=== PATIENT | female | born 2000 | race Caucasian/White ===

== ENCOUNTER 2019-01-25 19:18 | Observation (INO) ==
--- NOTE | 2019-01-25 20:41 | PROVIDER DOCUMENTATION ---
HPI-Abdominal Pain/GI Problem - General Chief Complaint: Abdominal Pain Stated Complaint: PAIN IN (R) ABD, VOMITING Time Seen by Provider: 01/25/19 20:18 Source: patient Allergies/Adverse Reactions: Patient Allergies Allergy/AdvReac Type Severity Reaction Status Date / Time No Known Allergies Allergy Verified 01/25/19 16:26 Home Medications: Home Medication List Medication Instructions Recorded Confirmed Last Taken Type NK [No Home Medications] 01/25/19 01/25/19 Unknown History - History of Present Illness-ABD Nature of Presenting Problems: Patient is a 18 yowf who complains of RLQ pain, n/v, and fever that began today. Also states she has been on her period since 01/16/19. She is currently on abx for a UTI. Denies any other complaints. She is non-toxic in appearance. Review of Systems - Adult - REVIEW OF SYSTEMS - ADULT Constitutional: reports: see HPI, fever Eyes: reports: no symptoms reported Ears, Nose, Mouth & Throat: reports: no symptoms reported Cardiovascular: reports: no symptoms reported Respiratory: reports: no symptoms reported Gastrointestinal: reports: see HPI Genitourinary: reports: see HPI, other (vaginal bleeding) Musculoskeletal: reports: no symptoms reported Integumentary: reports: no symptoms reported Neurological: reports: no symptoms reported Psychiatric: reports: no symptoms reported Endocrine: reports: no symptoms reported Hematologic/Lymphatic: reports: no symptoms reported Allergic/Immunologic: reports: no symptoms reported All Other Systems: Reviewed and Negative Past History - Adult - PAST MEDICAL HISTORY-ADULT Review of Records: reports: Old Records Reviewed, Nursing Assessment Review, Medications Reviewed, Social history reviewed & non-contributory. Major Childhood Illnesses: reports: denies history Cardiovascular: reports: denies history Respiratory: reports: denies history Gastrointestinal: reports: denies history Obstetrical/Gynecological: reports: denies history Genitourinary: reports: denies history Musculoskeletal: reports: denies history Neurological: reports: denies history Endocrine/Immune: reports: denies history Other Conditions: reports: denies history - PRIOR SURGERIES/PROCEDURES Surgical/Procedure History: reports: reviewed, not pertinent - PRIOR HOSPITALIZATIONS Prior Hospitalizations: reports: none - IMMUNIZATION STATUS Childhood Immunizations: See Nurse Assessment Flu Vaccine: See Nurse Assessment - FAMILY HISTORY Family History: reviewed, not pertinent - SOCIAL HISTORY Smoking: cigarettes, less than 1 pack/day Physical Exam-General - PHYSICAL EXAM-ADULT Initial Vital Signs Reviewed: Yes - CONSTITUTIONAL General Appearance: alert, mild distress. negative: lethargic, slow to respond - EYES Eyes: PERRL/EOMI, pink conjunctivae - HEAD, EARS, NOSE, MOUTH & THROAT HENMT: normocephalic/atraumatic, moist mucous membranes - NECK Neck: full range of motion, supple, normal inspection - RESPIRATORY Respiratory: chest non-tender, lungs clear, normal breath sounds, no pleuratic chest pain, no respiratory distress, no accessory muscle use - CARDIOVASCULAR Cardiovascular: regular rate, rhythm, no gallop, no murmur - GASTROINTESTINAL (ABDOMEN) Abdominal Exam: normal bowel sounds, soft, no organomegaly, no pulsatile mass, g uarding (RLQ), McBurney's point tenderness. negative: distended, rigid - MUSCULOSKELETAL Back Exam: normal inspection, no CVA tenderness Extremity: normal range of motion, non-tender, normal inspection - SKIN Integumentary: normal color, warm/dry. negative: cyanosis, diaphoresis, ja undice, mottled, pallor - NEUROLOGIC Neurologic: grossly normal, no motor/sensory deficits - PSYCHIATRIC Psych/Mental Status: normal mood/affect, normal thought content, normal thought process, oriented x 3 Progress - PLAN OF CARE/RESULTS Progress/Plan/Lab Results: Vital Signs - 8 hr 01/25/19 19:20 Temperature 101.0 F H Pulse Rate 105 H Respiratory Rate 19 Blood Pressure 134/94 O2 Sat by Pulse Oximetry 100 Result Diagrams: 01/26/19 00:00 01/26/19 00:00 - REASSESSMENT Reassessment #1 Time Reassessed: 23:45 Status: other (Pt has not received meds yet. Reassessment to be performed after meds.) - CT/MRI 1 CT Study: Abdomen, Pelvis ([facility] - [address] , [address] [address] [facility] - [address] [place] [address] Department of Imaging Patient: UZMA MOTLEY Date: 01/25/19MR#: [id number] : 2000ADM Status: PRE ERAcct#: [id number] Age/Sex: 18/FRoom/Bed: Loc: ED Ordering Physician: Rosendo Celestin Family Physician: Genesis Treviño Reason for Procedure: RLQ pain, n/v, fever ___ Signed EXAM: CT ABDOMEN/PELVIS W/O CONTRAST - 01/25/2019 HISTORY: RLQ pain, n/v, fever TECHNIQUE: CT abdomen/pelvis without contrast. No contrast administered per request of the referring provider. COMPARISON: None. FINDINGS: There is no hydronephrosis or perinephric edema identified. There is no obstructing renal stone identified. There is some limitation in evaluation of bowel due to the lack of administered contrast. There is distention of proximal small bowel with retained fluid. The distal small bowel is nondistended. There is generalized small bowel wall thickening involving proximal and distal small bowel. There is generalized mesenteric edema. These findings suggest relatively severe enteritis. There is no discrete obstructing lesion identified, although mid small bowel obstruction is not excluded. There are mildly prominent mesenteric lymph nodes which are likely reactive. There is no abscess identified. There is no free air identified. What appears to represent the appendix shows no obvious inflammation. There is a 2 cm left ovarian cyst. There is mild hepatosplenomegaly. The adrenal glands and pancreas are unremarkable. There are no calcified gallstones or pericholecystic inflammation identified. IMPRESSION: Severe enteritis. No abscess. No free air. No obvious appendicitis. 2 cm left ovarian cyst. Mild hepatosplenomegaly. This exam was performed using automated exposure control, adjustment of mA or kV according to patient size, and/or use of iterative reconstruction technique. Electronically signed by Lorenzo Gaines 01/25/2019 9:37 PM 01/25/192136 Interpreting Physician: Lorenzo Gaines MD Dictated Date/Time: 01/25/192123 cc: Rosendo Celestin; Genesis Treviño) - CONSULTS/PCP/HOSPITALIST Notification #1 *Consult/PCP/Hospitalist*: Dr Perez Time Discussed: 03:38 Consult Disposition: Will see in ED - CHANGE OF SHIFT REPORT (ED Provider) 1 Report Given and Care Transferred to:: Dr. Devine Time of Transfer: 00:08 Items Pending: Labs, Pain Control Departure - Departure Date of Disposition Decision: 01/26/19 Time of Disposition Decision: 03:39 DIAGNOSIS: Enteritis Disposition: ADMITTED INPATIENT 09 Certified Medical Emergency: Emergent Condition: Fair Referrals and Follow-Ups: Genesis Treviño [Primary Care Provider] - - Critical Care Note This patient required my direct & personal management of CC.: No Attestation - Physician/ NELLIE Attestation Patient care was provided by Advanced Practice Provider:: Yes Advanced Practice Provider:: Rosendo Celestin Advanced Practice Provider documentation review:: The Mid-level provider documentation, treatment plan and medical decision making was reviewed by the physician who agrees with all treatment and medical decision making by the MLP. The physician spent face to face time with patient:: Yes Advanced Practice Provider documentation review:: Supervising physician onsite and consulted in the evaluation and care of this patient. The physician did have a face to face encounter with the patient.
[2019-01-25] MEDS ORDERED: MORPHINE IV ONE (20:42)
[2019-01-25] MEDS ORDERED: NS 1,000 ML IV ONE (20:42)
[2019-01-25] MEDS ORDERED: ZOFRAN IV ONE (20:42)
[2019-01-25 21:08] LABS: URINE SOURCE CLEAN CATCH
[2019-01-25 21:18] LABS: BILIRUBIN URINE NEGATIVE (NEGATIVE); BLOOD URINE MODERATE (NEGATIVE); COLOR YELLOW; GLUCOSE URINE NEGATIVE (NEGATIVE); KETONE URINE 20 mg/dL (NEGATIVE); LEUKOCYTES URINE SMALL (NEGATIVE); NITRITE URINE NEGATIVE (NEGATIVE); PROTEIN URINE TRACE mg/dL (NEGATIVE); SP GRAVITY URINE 1.021; TURBIDITY URINE CLEAR (CLEAR); UROBILINOGEN URINE NORMAL (NORMAL)
[2019-01-25 21:19] LABS: UR EPITHELIAL CELLS <10 /HPF (<10); URINE BACTERIA NEGATIVE /HPF; URINE RBC <10 /HPF (<10)
[2019-01-25 21:24] LABS: URINE CRYSTALS NONE SEEN
--- NOTE | 2019-01-25 21:40 | Diag Imaging Result Doc PS360 ---
EXAM: CT ABDOMEN/PELVIS W/O CONTRAST - 01/25/2019 HISTORY: RLQ pain, n/v, fever TECHNIQUE: CT abdomen/pelvis without contrast. No contrast administered per request of the referring provider. COMPARISON: None. FINDINGS: There is no hydronephrosis or perinephric edema identified. There is no obstructing renal stone identified. There is some limitation in evaluation of bowel due to the lack of administered contrast. There is distention of proximal small bowel with retained fluid. The distal small bowel is nondistended. There is generalized small bowel wall thickening involving proximal and distal small bowel. There is generalized mesenteric edema. These findings suggest relatively severe enteritis. There is no discrete obstructing lesion identified, although mid small bowel obstruction is not excluded. There are mildly prominent mesenteric lymph nodes which are likely reactive. There is no abscess identified. There is no free air identified. What appears to represent the appendix shows no obvious inflammation. There is a 2 cm left ovarian cyst. There is mild hepatosplenomegaly. The adrenal glands and pancreas are unremarkable. There are no calcified gallstones or pericholecystic inflammation identified. IMPRESSION: Severe enteritis. No abscess. No free air. No obvious appendicitis. 2 cm left ovarian cyst. Mild hepatosplenomegaly. This exam was performed using automated exposure control, adjustment of mA or kV according to patient size, and/or use of iterative reconstruction technique. Electronically signed by Lorenzo Gaines 01/25/2019 9:37 PM
[2019-01-25] MEDS ORDERED: TYLENOL PO ONE (21:44)
[2019-01-26 00:23] LABS: BASO# 0.01 X1000 (0.0-0.2); BASO% 0.1 % (0.0-0.8); EOS# 0.02 X1000 (0.0-0.7); EOS% 0.1 % (0.0-10.0); HEMATOCRIT 35.2 % (37.0-47.0); HEMOGLOBIN 11.3 g/dL (12.0-16.0); IMM GRAN# 0.05 X1000 (0.0-0.04); IMM GRAN% 0.4 % (0.0-0.5); LYMPH# 0.99 X1000 (1.2-3.4); MCH 27.8 PG (27-31); MCHC 32.1 g/dL (33-37); MCV 86.7 FL (81-99); MONO# 0.56 X1000 (0.11-0.59); MPV 10.6 FL (7.4-10.4); NEUT# 12.48 X1000 (1.4-6.5); NEUT% 88.4 % (42.2-75.2); PLT 262 X1000 (130-400); RBC 4.06 XMIL (4.2-5.4); RDW 13.2 % (11.5-14.5); WBC 14.11 X1000 (4.8-10.8)
[2019-01-26 00:53] LABS: AGAP 13; ALB/GLOB RATIO 1.3; ALBUMIN 3.9 g/dL (3.5-5.0); ALKALINE PHOSPHATASE 62 U/L (32-104); BUN 11 mg/dL (8-22); CHLORIDE 101 mmol/L (98-107); COSMO 272; CREATININE 0.8 mg/dL (0.5-0.9); ESTIMATED GFR > 60; GLUCOSE 116 mg/dL (70-104); GOT 9 U/L (10-30); GPT 7 U/L (10-36); LIPASE 9 U/L (13-60); POTASSIUM 3.3 mmol/L (3.5-5.1); SODIUM 136 mmol/L (136-145); TCO2 22 mmol/L (25-35); TOTAL BILIRUBIN 0.49 mg/dL (0.20-1.00); TOTAL PROTEIN 6.8 g/dL (6.3-8.3)
--- NOTE | 2019-01-26 05:41 | HISTORY AND PHYSICAL ---
PRIMARY CARE PHYSICIAN: Dr. Genesis Treviño. CHIEF COMPLAINT: Abdominal pain x2 days. HISTORY OF PRESENTING ILLNESS: A 18-year-old female without any significant past medical history, presented to the emergency department with 2 days history of having abdominal pain. The patient states that she was also having nausea, vomiting this time. The patient states the pain was worsening so she had come to the emergency department. In the ED, she was evaluated, she had imaging done which did show severe enteritis. Due to her presenting symptoms, it was thought that we will place her for observation for further evaluation and management. At time of my examination, patient denied any headache, fever, chills, chest pain, shortness of breath, hemoptysis, melena, weight changes, but complained of abdominal pain. PAST MEDICAL HISTORY: None. PAST SURGICAL HISTORY: Pyloric stenosis surgery, tonsillectomy and adenoidectomy. ALLERGIES: No known drug allergies. CURRENT MEDICATIONS: None. SOCIAL HISTORY: No history of smoking, alcohol, or illicit drug use. FAMILY HISTORY: No history of coronary disease. REVIEW OF SYSTEMS: Fourteen point review of systems is as in HPI. Other systems negative. PHYSICAL EXAMINATION: GENERAL: Cooperative, friendly female. She is without any respiratory distress. VITAL SIGNS: Temperature 98.7 degrees, pulse 66, respirations 20, blood pressure 102/48. HEENT: Atraumatic, normocephalic. Extraocular movements intact. PERRLA. NECK: No masses. CHEST: Clear to auscultation. CARDIOVASCULAR: Regular rate and rhythm. ABDOMEN: Soft. Mild tenderness. EXTREMITIES: No edema. NEUROLOGIC: She is awake, alert, oriented x3. GENITOURINARY: No bladder distention. SKIN: Warm. LABORATORIES AND STUDIES: WBCs 14.11, hemoglobin 11.3, hematocrit 35.2, platelets 262,000. Sodium 136, potassium 3.3, chloride 100, CO2 is 22, BUN is 11, creatinine 0.8. Glucose 116. UA is nitrite negative. CT of the abdomen and pelvis shows severe enteritis. ASSESSMENT: This is a 18-year-old female without any significant past medical history, presented to the emergency department with several days history of having abdominal pain, nausea, vomiting. She was evaluated in the emergency department. She had imaging done which did show severe enteritis. Subsequently, we will place her in for observation for further evaluation and management. 1. Abdominal pain with nausea and vomiting. 2. Severe enteritis. PLAN: 1. We will admit patient to medical floor. 2. Continue with supportive treatment with IV fluids, antiemetics, pain control. 3. We will keep patient NPO for now. 4. We will continue to follow and reassess, make further recommendations based on patient's clinical course. cc: Kevin Perez MD
[2019-01-26] MEDS: NS 1,000 ML IV SCH ×3 (06:59→21:46)
--- NOTE | 2019-01-26 10:03 | PROGRESS NOTE ---
DATE: 01/26/2019 SUBJECTIVE: Ms Gutierrez came in yesterday on 01/25/2019. She is a patient of Dr. Genesis Treviño. A 18-year-old female without any significant past medical history, presented to the emergency room with 2-day history of having abdominal pain. The patient reports she was having nausea, vomiting. The patient also states she was worsening, so she came to the emergency room, was evaluated, had imaging done which did show severe enteritis. Due to presenting symptoms, it was thought that we would place her in for observation, evaluation and management. PAST MEDICAL HISTORY: None. PAST SURGICAL HISTORY: Pyloric stenosis surgery, tonsillectomy and adenoidectomy. LABORATORY DATA: White count this morning 06606, hematocrit 35, platelet count 262,000. Her chemistry: Sodium 130, potassium 3.3, chloride 100, BUN 100, creatinine 0.8, glucose 116. AST 9, ALT 7, alkaline phosphatase 62, total bilirubin 0.49, albumin 3.9. ASSESSMENT AND PLAN: Abdominal pain, enteritis, nonspecific, suspect viral enteritis. She is resting at the present time. Continue IV fluids and antiemetics as necessary. She is getting normal saline 125 mL an hour. cc: Gerson Anton MD
[2019-01-26] MEDS: ZOFRAN IV PRN ×2 (10:15→17:50)
[2019-01-26] MEDS: MORPHINE IV PRN (22:15)
[2019-01-27] MEDS: MORPHINE IV PRN ×2 (04:50→21:37)
[2019-01-27] MEDS: NS 1,000 ML IV SCH ×3 (04:54→20:52)
[2019-01-27 07:08] LABS: BASO# 0.02 X1000 (0.0-0.2); BASO% 0.3 % (0.0-0.8); EOS# 0.14 X1000 (0.0-0.7); EOS% 1.9 % (0.0-10.0); HEMATOCRIT 31.7 % (37.0-47.0); HEMOGLOBIN 9.8 g/dL (12.0-16.0); LYMPH# 1.68 X1000 (1.2-3.4); LYMPH% 22.3 % (20.5-51.1); MCH 27.8 PG (27-31); MCHC 30.9 g/dL (33-37); MCV 90.1 FL (81-99); MONO# 0.42 X1000 (0.11-0.59); MONO% 5.6 % (1.7-9.3); NEUT# 5.28 X1000 (1.4-6.5); NEUT% 69.9 % (42.2-75.2); PLT 230 X1000 (130-400); RBC 3.52 XMIL (4.2-5.4); RDW 13.6 % (11.5-14.5); WBC 7.54 X1000 (4.8-10.8)
[2019-01-27 07:29] LABS: AGAP 12; BUN 13 mg/dL (8-22); CALCIUM 8.8 mg/dL (8.8-10.2); CHLORIDE 106 mmol/L (98-107); COSMO 278; CREATININE 0.8 mg/dL (0.5-0.9); ESTIMATED GFR > 60; GLUCOSE 80 mg/dL (70-104); POTASSIUM 3.7 mmol/L (3.5-5.1); SODIUM 140 mmol/L (136-145); TCO2 22 mmol/L (25-35)
[2019-01-27] MEDS ORDERED: DULCOLAX PR PRN (09:03)
--- NOTE | 2019-01-27 09:18 | PROGRESS NOTE ---
DATE: 01/27/2019 SUBJECTIVE: Ms. Mireles was sleeping. She is easy to arouse. She says she is hungry. She says she has not had a bowel movement in almost 7 days now. OBJECTIVE: Vital Signs: Remains afebrile, temperature 97.9 degrees, pulse 60, respirations 16, blood pressure 112/55. HEENT: Pupils are equal and round. Neck: No distended neck veins. Lungs: Clear in all lung la. Cardiovascular: Regular rhythm and rate without murmur or S3. Abdomen: Soft. Skin: Warm and dry. IMAGING AND LABORATORY DATA: Lab from 01/27/2019 shows CBC and electrolytes unremarkable. Abdominopelvic CT shows severe enteritis, no abscess, no free air. PLAN: We are going to try a soft diet, and I am going to give her something for her bowels. She does not take any home medicines, so what we are going to try is MiraLAX twice a day, and will try a little bit of Janneth-Colace and try a soft diet today. cc: Gerson Anton MD
[2019-01-27] MEDS: MIRALAX PO SCH ×2 (09:57→20:52)
[2019-01-27] MEDS: PERICOLACE PO SCH ×2 (09:57→20:52)
[2019-01-28] MEDS: NS 1,000 ML IV SCH (05:01)
[2019-01-28 07:26] VITALS: BP 119/80
[2019-01-28] MEDS: PERICOLACE PO SCH (08:11)
[2019-01-28] MEDS: MIRALAX PO SCH (08:11)
--- NOTE | 2019-01-28 09:50 | DISCHARGE SUMMARY ---
ADMISSION DATE: 01/25/2019 DISCHARGE DATE: 01/28/2019 HISTORY OF PRESENT ILLNESS AND HOSPITAL COURSE: She is a patient of Dr. Genesis Treviño. She came in with abdominal pain for 2 days, lower right quadrant, radiating across to the left quadrant. A 18- year-old female with no significant past medical history, complaining of abdominal pain. The CT scan showed some enteritis, small bowel, and she had quite a bit of constipation. Her lab was borderline elevated white count 14,110, hematocrit 35, platelet count 262,000. Her sodium was 140, potassium 3.7, chloride 106, BUN 13, creatinine 0.8. No elevation of liver enzymes. She had some nausea. Was kept on clear liquids and started on some MiraLAX. She did have a bowel movement. I then advanced her to a soft diet. Still had an element of constipation. Did not see any evidence of surgical abdomen. White count came down to 7540. She wanted to go home. We will let her go home, have her kind of stick with a soft diet for a bit, and continue on her MiraLAX. I gave her some Dulcolax suppositories she can use as well. MiraLAX 17 g twice a day and I put her on Janneth-Colace 1 twice a day. She will have Dulcolax suppositories to use as needed. She was not on any home medicine. I want her to follow up with Dr. Genesis Treviño. cc: Gerson Anton MD
== END 2019-01-28 11:22 | disposition home or self-care (01) ==
LOC: 3N 19:18 → ED 19:18 → SUATTDRO 19:19
PROVIDERS: ATTEND Emergency Medicine